=== PATIENT | male | born 1990 | race Caucasian/White ===

== ENCOUNTER 2021-03-21 14:01 | Outpatient (CLI) | payer OTHER ==
--- NOTE | 2021-03-21 17:03 | XRAY Report ---
PROCEDURE: Wrist 3 View RT INDICATIONS: R WRIST PX TECHNIQUE: 3 views of the wrist were acquired. COMPARISON: None FINDINGS: Bones: No fractures or dislocations. No suspicious bony lesions. Scaphoid view: Not performed. Soft tissues: No suspicious soft tissue calcifications. IMPRESSION: No fracture. No osseous lesion. If there is continued clinical concern for pathology, then advanced i maging (CT, MRI, bone scan) should be considered for further evaluation. Reviewed by: JAVIER Samano on 03/21/2021 5:02 PM PDT Approved by: Rodríguez Bhat MD on 03/21/2021 5:02 PM PDT Station ID: [id number]
--- NOTE | 2021-03-21 17:04 | XRAY Report ---
PROCEDURE: Elbow 3 View RT INDICATIONS: R ELBOW PX TECHNIQUE: 3 views of the elbow were acquired. COMPARISON: None FINDINGS: Bones: No fractures or dislocations. No suspicious bony lesions. Soft tissues: No elbow joint effusion. No suspicious soft tissue calcifications. IMPRESSION: No fracture. No osseous lesion. If there is continued clinical concern for pathology, then advanced i maging (CT, MRI, bone scan) should be considered for further evaluation. Reviewed by: JAVIER Samano on 03/21/2021 5:02 PM PDT Approved by: Rodríguez Bhat MD on 03/21/2021 5:02 PM PDT Station ID: [id number]
== END 2021-03-21 23:59 | disposition home or self-care (01) ==
LOC: DI.N 14:01
PROVIDERS: ATTEND Orthopaedic Surgery
DX: M25.521 Pain in right elbow (principal)